=== PATIENT | female | born 1995 | race Caucasian/White ===

== ENCOUNTER 2025-03-06 10:56 | Emergency (ER) | payer SELFPAY ==
[2025-03-06] MEDS: Ketorolac 30 MG/ML SDV IM ONE (11:24)
[2025-03-06] MEDS: Benzocaine 20% Topical Spray UD MUCMEM ONE (11:25)
[2025-03-06] MEDS: Lidocaine 2% Viscous Solution 15 ML UD PO ONE (11:25)
== END 2025-03-06 11:44 | disposition home or self-care (01) ==
LOC: MW.ED 10:56
DX: K02.9 Dental caries, unspecified (principal); R03.0 Elevated blood-pressure reading, without diagnosis of hypertension; Z79.899 Other long term (current) drug therapy
CPT/HCPCS: 96374; 99282; A9270; J1885; 99283

== ENCOUNTER 2025-06-12 09:24 | Emergency (ER) | payer SELFPAY | END 2025-06-12 10:44 | disposition home or self-care (01) | LOC: MW.ED 09:24 | DX: K04.7 Periapical abscess without sinus (principal) | CPT/HCPCS: 64400; 99283; A9270; J0665 ==

== ENCOUNTER 2025-06-20 11:12 | Emergency (ER) | payer SELFPAY ==
[2025-06-20] MEDS ORDERED: Sodium Chloride 0.9% 10 ML Syringe FLUSH PRN (11:27)
[2025-06-20] MEDS ORDERED: Sodium Chloride 0.9% 2.5 ML Syringe FLUSH PRN (11:27)
[2025-06-20] MEDS ORDERED: Rabies Immune Globulin/PF (HyperRAB) 300 UNIT/ML 1 ML SDV IM ONE (11:30)
[2025-06-20] MEDS: Ketorolac 30 MG/ML SDV IVPUSH ONE (11:34)
[2025-06-20] MEDS: Ampicillin/Sulbactam Na 3 GM in Sodium Chloride 0.9% 100 ML IV ONE (11:34)
[2025-06-20 11:46] LABS: BASOPHILS ABSOLUTE AUTO 0.04 K/uL (0.00-0.20); BASOPHILS PERCENT AUTO 0.6 % (0.0-1.0); EOSINOPHILS ABSOLUTE AUTO 0.11 K/uL (0.00-0.45); EOSINOPHILS PERCENT AUTO 1.6 % (0.0-6.0); IMMATURE GRAN ABSOLUTE AUTO 0.02 K/uL (0.00-0.05); IMMATURE GRAN PERCENT AUTO 0.3 % (0.0-0.4); LYMPHOCYTES ABSOLUTE AUTO 2.69 K/uL (1.00-4.80); LYMPHOCYTES PERCENT AUTO 38.3 % (24.0-44.0); MEAN PLATELET VOLUME 9.4 fL (9.4-12.3); MONOCYTES ABSOLUTE AUTO 0.62 K/uL (0.00-0.80); MONOCYTES PERCENT AUTO 8.8 % (0.0-8.0); NEUTROPHILS ABSOLUTE AUTO 3.55 K/uL (1.80-7.70); NEUTROPHILS PERCENT AUTO 50.4 % (41.0-71.0); NRBC ABSOLUTE 0.00 K/uL (0.00-0.02); NRBC PERCENT 0.0 /100WBC (0.0-0.2); PLATELET COUNT,PLT 178 K/uL (150-400); RED BLOOD CELL COUNT 4.08 M/uL (4.10-5.30); WHITE BLOOD CELL COUNT,WBC 7.03 K/uL (3.9-11.3)
[2025-06-20] MEDS ORDERED: Rabies Immune Globulin/PF (HyperRAB) 300 UNIT/ML 5 ML SDV IM ONE (12:15)
[2025-06-20 12:17] LABS: A/G RATIO 0.8 (0.9-1.6); ALANINE AMINOTRANSFERASE,ALT 33.0 IU/L (14-63); ASPARTATE AMNIOTRANSFERASE,AST 26.0 IU/L (15-37); BILIRUBIN TOTAL 0.2 mg/dL (0.2-1.0); BLOOD UREA NITROGEN,BUN 12.0 mg/dL (7.0-18.0); CARBON DIOXIDE,CO2 20.4 mmol/L (21.0-32.0); CHLORIDE,CL 108.0 mmol/L (98-107); CREATININE 1.0 mg/dL (0.6-1.0); EST CRCL DRUG DOSING (CG) 85.97 mL/min; GLUCOSE RANDOM 92.0 mg/dL (74-106); POTASSIUM,K 3.3 mmol/L (3.5-5.1); PROTEIN TOTAL,TP 7.3 g/dL (6.4-8.2); SODIUM,NA 143.0 mmol/L (136-145)
[2025-06-20 12:20] LABS: ESTIMATED GFR 78.0 mL/min (>60)
[2025-06-20] MEDS: Diphtheria,Pertussis(Acell),Tetanus Vaccine 0.5 ML Syringe IM ONE (12:38)
[2025-06-20] MEDS: Rabies Immune Globulin/PF (HyperRAB) 300 UNIT/ML 5 ML SDV IM ONE (12:42)
[2025-06-20] MEDS: Rabies Vaccine (Avian) 2.5 Unit Inj Kit IM ONE (12:51)
== END 2025-06-20 13:06 | disposition home or self-care (01) ==
LOC: MW.ED 11:12
DX: S61.452A Open bite of left hand, initial encounter (principal); L03.114 Cellulitis of left upper limb; I10 Essential (primary) hypertension; Z79.899 Other long term (current) drug therapy; W54.0XXA Bitten by dog, initial encounter
CPT/HCPCS: 36415; 73130; 80053; 84703; 85025; 85652; 86140; 87040; 90375; 90471; 90472; 90675; 90715; 96361; 96365; 96372; 96375; 99283; A9270; J0295; J1885; J7030